=== PATIENT | female | born 1980 | race Caucasian/White ===

== ENCOUNTER 2024-02-20 10:23 | Emergency (ER) | payer OTHER ==
--- NOTE | 2024-02-20 10:36 | ER ---
Nurse's Notes [facility] Name: Milka Philip Age: 44 yrs Sex: Female : 1980 Arrival Date: 02/20/2024 Time: 10:23 Bed IW1 Private MD: Diagnosis: Acute serous otitis media, left ear Presentation: 02/19 10:26 Chief complaint: Patient states: left ear pain and drainage. aa5 10:26 Risk Assessment: Do you want to hurt yourself or someone else? Patient reports no aa5 desire to harm self or others. Onset of symptoms was February 2024. 10:26 Acuity: SABINE 4 aa5 10:26 Coronavirus screen: At this time, the client does not indicate any symptoms associated aa5 with coronavirus-19. Ebola Screen: Patient denies travel to an Ebola-affected area in the 21 days before illness onset. Initial Sepsis Screen: Does the patient meet any 2 criteria? No. Patient's initial sepsis screen is negative. Does the patient have a suspected source of infection? No. Patient's initial sepsis screen is negative. 10:26 Method Of Arrival: Ambulatory aa5 Historical: - Allergies: 10:28 steroids; aa5 10:28 Zofran; aa5 - PMHx: 10:30 None; aa5 - PSHx: 10:28 back; aa5 10:30 ear tubes; aa5 - Immunization history:: Adult Immunizations unknown. - Infectious Disease History:: Denies. - Social history:: Smoking status: Patient denies any tobacco usage or history of. - Family history:: not pertinent. - Hospitalizations: : No recent hospitalization is reported. Screenin:26 [facility] ED Fall Risk Assessment (Adult) History of falling in the last 3 months, aa5 including since admission No falls in past 3 months (0 pts) Confusion or Disorientation No (0 pts) Intoxicated or Sedated No (0 pts) Impaired Gait No (0 pts) Mobility Assist Device Used No (0 pt) Altered Elimination No (0 pt) Score/Fall Risk Level 0 - 2 = Low Risk Oriented to surroundings, Maintained a safe environment, Educated pt \T\ family on fall prevention, incl call for assistance when getting out of bed. Abuse screen: Denies threats or abuse. Nutritional screening: No deficits noted. Tuberculosis screening: No symptoms or risk factors identified. Assessment: 10:26 General: Appears comfortable, Behavior is calm, cooperative. Pain: Complains of pain in aa5 left ear. Neuro: Level of Consciousness is awake, alert, obeys commands, Oriented to person, place, time, situation. Cardiovascular: Patient's skin is warm and dry. Respiratory: Airway is patent Respiratory effort is even, unlabored, Respiratory pattern is regular, symmetrical. GI: No signs and/or symptoms were reported involving the gastrointestinal system. : No signs and/or symptoms were reported regarding the genitourinary system. EENT: Reports pain in left ear and left ear drainage. Derm: Skin is pink, warm \T\ dry. Musculoskeletal: Range of motion: intact in all extremities. Vital Signs: 10:26 BP 130 / 84; Pulse 67; Resp 18 S; Temp 98(TE); Pulse Ox 100% on R/A; Weight 104.33 kg aa5 (R); Height 5 ft. 5 in. (R); 10:37 BP 130 / 84; Pulse 67; Resp 18 S; Pulse Ox 99% on R/A; aa5 10:26 Body Mass Index 38.27 (104.33 kg, 165.1 cm) aa5 ED Course: 10:25 Patient arrived in ED. mr 10:25 Brian Brito MD is Attending Physician. rn 10:26 Arm band placed on. aa5 10:26 Patient has correct armband on for positive identification. aa5 10:28 Triage completed. aa5 10:32 Debra Alonso, SPARKLE is Primary Nurse. aa5 10:39 No provider procedures requiring assistance completed. Patient did not have IV access aa5 during this emergency room visit. Administered Medications: No medications were administered Medication: 10:40 VIS not applicable for this client. aa5 Outcome: 10:36 Discharge ordered by . rn 10:39 Discharged to home ambulatory, aa5 10:39 Condition: good 10:39 Discharge instructions given to patient, Instructed on discharge instructions, follow up and referral plans. medication usage, Demonstrated understanding of instructions, follow-up care, medications, Prescriptions given X 2, 10:40 Patient left the ED. aa5 Signatures: CardonaRiddhi, Reg Reg mr Brian Brito MD MD rn Calderon, Audri, RN RN aa5 Corrections: (The following items were deleted from the chart) 10:32 10:26 Pulse 67bpm; Resp 18bpm; Spontaneous; Pulse Ox 100% RA; Temp 98F Temporal; 104.33 aa5 kg Reported; Height 5 ft. 5 in. Reported; BMI: 38.2; aa5
--- NOTE | 2024-02-20 10:37 | EDPHYS ---
Physician Documentation [facility] Name: Milka Philip Age: 44 yrs Sex: Female : 1980 Arrival Date: 02/20/2024 Time: 10:23 Bed IW1 Private MD: ED Physician Brian Brito HPI: 02/19 10:33 This 44 yrs old Female presents to ER via Ambulatory with complaints of Ear Pain, rn Drainage From Ear. 10:33 The patient presents with drainage, pain. The complaints affect the left ear. Onset: rn The symptoms/episode began/occurred 4 day(s) ago. Modifying factors: The symptoms are alleviated by nothing, the symptoms are aggravated by nothing. Severity of symptoms: At their worst the symptoms were moderate in the emergency department the symptoms are unchanged. The patient has experienced similar episodes in the past. Patient reports left ear pain with drainage. Had bilateral tympanostomy tubes in ears. [place] the [place] and [place] in her ear. Denies fever but reports pain, muffled hearing and drainage out of the left ear.. Historical: - Allergies: 10:28 steroids; aa5 10:28 Zofran; aa5 - PMHx: 10:30 None; aa5 - PSHx: 10:28 back; aa5 10:30 ear tubes; aa5 - Immunization history:: Adult Immunizations unknown. - Infectious Disease History:: Denies. - Social history:: Smoking status: Patient denies any tobacco usage or history of. - Family history:: not pertinent. - Hospitalizations: : No recent hospitalization is reported. ROS: 10:33 Constitutional: Negative for fever, chills, and weight loss, ENT: Positive for left ear rn pain and drainage Exam: 10:33 Constitutional: This is a well developed, well nourished patient who is awake, alert, rn and in no acute distress. ENT: Left TM with erythema and bulging. No tympanostomy tube identified. Vital Signs: 10:26 BP 130 / 84; Pulse 67; Resp 18 S; Temp 98(TE); Pulse Ox 100% on R/A; Weight 104.33 kg aa5 (R); Height 5 ft. 5 in. (R); 10:37 BP 130 / 84; Pulse 67; Resp 18 S; Pulse Ox 99% on R/A; aa5 10:26 Body Mass Index 38.27 (104.33 kg, 165.1 cm) aa5 MDM: 10:25 Patient medically screened. rn 10:33 Differential diagnosis: otitis media, otitis externa, acute otalgia, serotympanum. Data rn reviewed: vital signs, nurses notes, and as a result, I will discharge patient. Counseling: I had a detailed discussion with the patient and/or guardian regarding the historical points, exam findings, and any diagnostic results supporting the discharge/admit diagnosis, the need for outpatient follow up, to return to the emergency department if symptoms worsen or persist or if there are any questions or concerns that arise at home. Special discussion: I discussed with the patient/guardian in detail that at this point there is no indication for admission to the hospital. It is understood, however, that if the symptoms persist or worsen the patient needs to return immediately for re-evaluation. Administered Medications: No medications were administered Disposition Summary: 02/20/24 10:36 Discharge Ordered Notes: Location: Home rn Problem: new rn Symptoms: have improved rn Condition: Stable rn Diagnosis - Acute serous otitis media, left ear rn Followup: rn - With: Private Physician - When: As needed - Reason: Recheck today's complaints, Re-evaluation by your physician Discharge Instructions: - Discharge Summary Sheet rn - Otitis Media, Adult rn - Ear Drops, Adult, Ryyn-[id number] rn Forms: - Medication Reconciliation Form rn - Antibiotic rn support services - Prescription Opioid Use rn - Patient Portal Instructions rn - Leadership Thank You Letter rn Prescriptions: - Augmentin 875-125 mg Oral Tablet - take 1 tablet ORAL route every 12 hours for 10 days; 20 tablet; Refills: 0, rn Product Selection Permitted - Cortisporin-TC 3.3-3-10-0.5 mg/mL Otic drops, suspension - instill 4 drops OTIC route every 6 hours for 7 days; 1 unit; Refills: 0, rn Product Selection Permitted Signatures: Brian Brito MD MD rn Calderon, Audri, RN RN aa5
[2024-02-20 11:26] VITALS: BP 130/84; TEMP 98
[2024-02-20 11:27] VITALS: O2SAT 99
== END 2024-02-20 10:40 | disposition home or self-care (01) ==
LOC: ER 10:23
DX: H65.02 Acute serous otitis media, left ear (principal)
CPT/HCPCS: 99283